=== PATIENT | male | born 1960 | race Hispanic/Latino ===

== ENCOUNTER 2018-02-22 13:22 | Emergency (ER) | payer BC ==
[~2018-02-22] VITALS: Ht 170.2 cm; Wt 86.2 kg
[2018-02-22] MEDS ORDERED: HYDROCODONE/APAP 10MG-325MG TAB ONE (18:03)
[2018-02-22] MEDS ORDERED: HYDROCODONE/APAP 10MG-325MG TAB PO ONE (18:15)
== END 2018-02-22 18:18 | disposition home or self-care (01) ==
LOC: ER 13:22
DX: L24.9 Irritant contact dermatitis, unspecified cause (principal); L50.1 Idiopathic urticaria
CPT/HCPCS: 99282

== ENCOUNTER 2019-01-11 20:11 | Emergency (ER) | payer BC ==
[~2019-01-11] VITALS: Ht 170.2 cm; Wt 86.2 kg
[2019-01-11] MEDS ORDERED: SODIUM CHLORIDE 0.9% 1000ML 1,000 ML IV STA (20:20)
[2019-01-11] MEDS ORDERED: MORPHINE SULFATE INJ 4 MG/ML INJ 1ML IV ONE (20:30)
[2019-01-11] MEDS ORDERED: ONDANSETRON HCL INJ 2MG/ML 2ML 2 MG/ML VIAL IV ONE (20:30)
[2019-01-11] MEDS ORDERED: TETANUS/DIPHTHERIA TOX ADULT 0.5 ML SYR IM ONE (21:00)
[2019-01-11 21:13] LABS: BASOPHILS # (AUTO) 0.1 (0.0-0.1); BASOPHILS % 0.5 % (0.0-1.0); EOSINOPHILS # (AUTO) 0.2 (0.0-0.4); EOSINOPHILS % 1.8 % (0.0-6.0); HEMATOCRIT 48.2 % (38.2-49.6); HEMOGLOBIN 16.8 g/dL (14.0-18.0); LYMPHOCYTES # (AUTO) 2.6 (1.0-3.2); LYMPHOCYTES % 24.2 % (18.0-39.1); MEAN CORPUSCULAR HEMOGLOBIN 31.1 pg (28-32); MEAN CORPUSCULAR HGB CONC 34.9 g/dL (31-35); MEAN CORPUSCULAR VOLUME 89.3 fL (81-99); MONOCYTES # (AUTO) 0.6 (0.2-0.8); MONOCYTES % 5.7 % (4.4-11.3); NEUTROPHILS # (AUTO) 7.2 (2.1-6.9); NEUTROPHILS % 67.6 % (38.7-80.0); PLATELET COUNT 221 x10e3/uL (140-360); RED CELL DISTRIBUTION WIDTH 12.9 % (11.7-14.4)
[2019-01-11 21:24] LABS: INR 0.86; PROTHROMBIN TIME 12.2 seconds (11.9-14.5)
[2019-01-11 21:25] LABS: PARTIAL THROMBOPLASTIN TIME 28.1 seconds (23.8-35.5)
[2019-01-11 21:34] LABS: ALANINE AMINOTRANSFERASE 23 IU/L (0-55); ALKALINE PHOSPHATASE 121 IU/L (40-150); BLOOD UREA NITROGEN 17 mg/dL (7-26); BUN/CREATININE RATIO 16 (6-25); CALCIUM 9.8 mg/dL (8.4-10.2); CARBON DIOXIDE 26 mmol/L (22-29); CHLORIDE 100 mmol/L (98-107); CREATINE KINASE 112 IU/L (30-200); CREATININE, SERUM 1.04 mg/dL (0.72-1.25); EST GLOMERULAR FILTRATION RATE > 60 ML/MIN (60-); GLUCOSE 240 mg/dL (74-118); SODIUM 135 mmol/L (136-145)
[2019-01-11 21:48] LABS: CLARITY,URINE CLEAR (CLEAR); COLOR,URINE YELLOW (YELLOW); LEUKOCYTE ESTERASE ,URINE NEGATIVE (NEGATIVE); NITRITE,URINE NEGATIVE (NEGATIVE); PROTEIN,URINE DIPSTICK NEGATIVE (NEGATIVE)
[2019-01-11 21:49] LABS: BACTERIA,URINE FEW /HPF; BILIRUBIN,URINE NEGATIVE (NEGATIVE); EPITHELIAL CELLS,URINE FEW /LPF; KETONES,URINE NEGATIVE (NEGATIVE); RBC,URINE 0-5 /HPF (0-5); URINE UROBILINOGEN 1 mg/dL (0.2 - 1); WBC,URINE (MAN) 0-5 /HPF (0-5)
[2019-01-11] MEDS ORDERED: IOPAMIDOL 370 MG/ML 200 ML INFUS..BTL INJ ONE ×2 (22:03→22:43)
[2019-01-11] MEDS ORDERED: SODIUM CHLORIDE 0.9% 50ML 50 ML ONE ×2 (22:03→22:43)
--- NOTE | 2019-01-11 22:31 | Diagnostic Imaging Report ---
EXAMINATION: Head CT without contrast. HISTORY:Trauma, fall. COMPARISON:None. TECHNIQUE: Multidetector axial images were obtained from the foramen magnum to the vertex without contrast. The images were reconstructed using brain and bone algorithms. Thin section brain images were reformatted into coronal and sagittal planes. Dose modulation, iterative reconstruction, and/or weight based adjustment of the mA/kV was utilized to reduce the radiation dose to as low as reasonably achievable. Intravenous contrast: None IMAGE QUALITY: Acceptable. FINDINGS: Skull/scalp: No lytic or blastic. lesions. No surgical changes. Parenchyma: No abnormal density. No acute hemorrhage, mass or acute major vascular territorial infarct. Arteries: No density suggestive of thrombosis. Dural sinuses: No abnormal density suggestive of thrombosis. Ventricles: Mild compensated dilatation due to volume loss. No hydrocephalus. Extra-axial spaces: Prominent extra-axial space in the anterior aspect of left middle cranial fossa possibly represents a small arachnoid cyst. Brain volume: Mild generalized cerebral volume loss. Craniocervical junction: No mass, Chiari malformation, or basilar invagination. Sella: No mass. Paranasal/mastoid sinuses: Imaged portions unremarkable. IMPRESSION: No acute intracranial abnormality. Mild generalized cerebral volume loss. Signed by: Dr. Yumiko Foster M.D. on 01/11/2019 10:28 PM
--- NOTE | 2019-01-11 22:38 | Diagnostic Imaging Report ---
History: Trauma, fall. Comparison studies: None Technique: Axial images were obtained through the cervical region.. Coronal and sagittal images reconstructed from the axial data. Dose modulation, iterative reconstruction, and/or weight based adjustment of the mA/kV was utilized to reduce the radiation dose to as low as reasonably achievable. Intravenous contrast: None Findings: Fractures: None. Soft tissue injuries: None. Atlantoaxial articulation: Intact. Alignment: Loss of normal cervical lordosis is either positional or due to muscle spasm. No scoliosis. Cervicomedullary junction: No abnormalities. The foramen magnum is patent. Soft tissues: No abnormalities. Vertebrae: No fractures, infection or neoplasm. Degenerative changes: Multilevel bridging anterior vertebral osteophyte from C2 to T1 represents diffuse idiopathic skeletal hyperostosis (DISH). 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 Multilevel posterior disc osteophyte complex, particularly at C2, 4, C5 and C6 without significant canal stenosis. IMPRESSION: 1. No acute cervical spine fracture or dislocation. Loss of normal cervical lordosis is either positional or due to muscle spasm. 2. Ligament, spinal cord and or vascular abnormalities cannot be excluded on the basis of this examination. 3. Cervical spondylosis as detailed above. Signed by: Dr. Yumiko Foster M.D. on 01/11/2019 10:34 PM
--- NOTE | 2019-01-11 22:58 | Diagnostic Imaging Report ---
EXAM: CT Chest, Abdomen and Pelvis WITH contrast INDICATION: ^fall r/o fx back / rib right side COMPARISON: None. TECHNIQUE: Chest, abdomen and pelvis were scanned utilizing a multidetector helical scanner from the lung apex to the pubic symphysis after administration of IV contrast. Coronal and sagittal reformations were obtained. Routine protocol was performed. Scan was performed when during portal venous phase. IV CONTRAST: 100 mL of Isovue 370 ORAL CONTRAST: Water COMPLICATIONS: None RADIATION DOSE: Total DLP: 926.39 mGy*cm Estimated effective dose: (DLP x 0.015 x size factor) mSv CTDIvol has been reviewed. It is below the limits set by the Radiation Protocol Committee (RPC). Dose modulation, iterative reconstruction, and/or weight based adjustment of the mA/kV was utilized to reduce the radiation dose to as low as reasonably achievable. FINDINGS: LINES and TUBES: None. LUNGS AND AIRWAYS: There is bibasilar atelectasis. 5.8 mm pleural-based nodule in the right middle lobe (series 4, image 72). Airways are normal. PLEURA: The pleural spaces are clear. HEART AND MEDIASTINUM: The thyroid gland is normal. No mediastinal, hilar or axillary lymphadenopathy. The heart is normal in size. There is no pericardial effusion. Main pulmonary artery measures 3.2 cm. Ascending aorta measures 4.0 cm. HEPATOBILIARY: The liver is diffuse hypodense compared to the spleen, consistent with diffuse hepatic diffuse hepatic steatosis. No focal hepatic lesions. No biliary ductal dilation. GALLBLADDER: No radio-opaque stones or sludge. No wall thickening. SPLEEN: No splenomegaly. PANCREAS: No focal masses or ductal dilatation. ADRENALS: No adrenal nodules KIDNEYS/URETERS: Kidneys enhance symmetrically. No hydronephrosis. No cystic or solid mass lesions. No stones. GI TRACT: No abnormal distention, wall thickening, or evidence of bowel obstruction. Appendix is normal. PELVIC ORGANS/BLADDER: Prostate measures 5.1 cm in transverse dimension. Bladder is distended with mild wall thickening. LYMPH NODES: No lymphadenopathy. VESSELS: Unremarkable. PERITONEUM / RETROPERITONEUM: No free air or fluid. BONES: There are degenerative changes in the lumbar spine. 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 SOFT TISSUES: Unremarkable. IMPRESSION: 1. No acute abnormalities identified in the abdomen or pelvis. 2. Diffuse hepatic steatosis. 3. No acute fractures. 4. Bladder is distended with mild wall thickening. Correlate with urinalysis. 5. 5.8 mm pleural-based nodule in the right middle lobe. Recommend six-month to one-year follow-up. Signed by: Dr. Jim Palacios M.D. on 01/11/2019 10:55 PM
--- NOTE | 2019-01-11 22:58 | Diagnostic Imaging Report ---
SHOULDER RIGHT COMPLETE - 2 views HISTORY: Pain. Fell in the bathtub. COMPARISON: None available. FINDINGS: Bones: No acute displaced fracture. Osseous alignment is within normal limits. Joints: Mild degenerative changes in the right AC joint. Unremarkable right glenohumeral joint. Soft tissues: The soft tissues appear unremarkable. IMPRESSION: No acute radiographic abnormality. Signed by: Dr. Jim Palacios M.D. on 01/11/2019 10:55 PM
[2019-01-12 00:03] VITALS: BP 140/69
== END 2019-01-12 00:14 | disposition home or self-care (01) ==
LOC: ER 20:11
DX: M25.511 Pain in right shoulder (principal); M54.5 Low back pain; S39.012A Strain of muscle, fascia and tendon of lower back, initial encounter; S29.012A Strain of muscle and tendon of back wall of thorax, initial encounter; W01.0XXA Fall on same level from slipping, tripping and stumbling without subsequent striking against object, initial encounter; Y93.E1 Activity, personal bathing and showering; Y92.002 Bathroom of unspecified non-institutional (private) residence as the place of occurrence of the external cause
CPT/HCPCS: 36415; 70450; 71260; 72125; 73030; 74177; 80053; 81001; 82550; 82553; 83735; 84484; 85025; 85610; 85730; 87086; 90471; 90714; 93005; 99284; J2270; J2405; J7030; Q9967